=== PATIENT | female | born 1950 | race Caucasian/White ===

== ENCOUNTER 2022-05-18 11:49 | Outpatient (CLI) | payer MEDICARE, OTHER ==
[2022-05-18] MEDS ORDERED: iohexoL-300 100 ML VIAL ONE (11:54)
[2022-05-18] MEDS ORDERED: iohexoL-300 100 ML VIAL IVP ONE (15:32)
--- NOTE | 2022-05-18 17:06 | CT Report ---
PROCEDURE: ANGIO CHEST W/WO INDICATIONS: CHEST PAIN CONTRAST: 100ml Omnipaque 300 TECHNIQUE: Noncontrast images of the chest were obtained. After the administration of intravenous contrast, 2 mm axial images were acquired from the pulmonary apices to the posterior costophrenic angles during the arterial phase. In addition, 1 mm lung kernel and 5 mm soft tissue kernel reconstructions were perfo rmed. 3-dimensional coronal oblique maximum intensity projection (MIP) reformats, 8 mm axial MIP, and 5 mm coronal and sagittal MPR reformats were then performed through the thorax. For radiation dose r eduction, the following was used: automated exposure control, adjustment of mA and/or kV according to patient size. COMPARISON: None. FINDINGS: Image quality: Adequate. Pulmonary arteries: Pulmonary arteries are normal in size, and demonstrate no intraluminal filling d efects to suggest central pulmonary embolism. Lungs and pleura: No consolidation or pleural effusion. Mediastinum: No pericardial effusion. Coronary artery calcifications are present. No mediastinal or hilar adenopathy. Thoracic aorta is normal in caliber and enhancement. Esophagus is normal in calib er. Bones and chest wall: Multilevel degenerative change of the visualized spine. No axillary or supracl avicular adenopathy. Abdomen: Visualized upper abdominal solid organs appear unremarkable in the early arterial phase of enhancement. IMPRESSION: No evidence of aortic dissection or pulmonary embolism. Reviewed by: Uday Dove MD on 05/18/2022 5:04 PM PST Approved by: Uday Dove MD on 05/18/2022 5:04 PM PST Station ID: [id number]
== END 2022-05-18 11:50 | disposition home or self-care (01) ==
LOC: DI 11:49
PROVIDERS: ATTEND Nurse Practitioner Family
DX: R07.9 Chest pain, unspecified (principal)
CPT/HCPCS: 71275; Q9967

== ENCOUNTER 2023-02-23 09:51 | Outpatient (CLI) | payer MEDICARE, OTHER ==
--- NOTE | 2023-03-03 08:47 | Mammography Report ---
BILATERAL DIGITAL SCREENING MAMMOGRAM 3D/2D: 02/23/2023 CLINICAL: Routine screening. No prior exams were available for comparison. Both breasts are almost entirely fatty (category a/<25% glandular tissue). No significant masses, calcifications, or other findings are seen in either breast. IMPRESSION: NEGATIVE There is no mammographic evidence of malignancy. A 1 year screening mammogram is recommended. Based on the Tyrer Cuzick model (a risk assessment model) the patients lifetime risk is 4.7% and her 10 year risk is 2.9%. According to the ACR, ACS, and NCCN guidelines, an annual breast MRI exam cody g with mammogram is recommended if the patients lifetime risk is 20% or greater. This exam was interpreted at Station ID: [id number]. NOTE: For mammograms, a report in lay terms will be sent to the patient. Approximately 15% of breast malignancies will not be visualized mammographically. In the management of a palpable breast mass, a negative mammogram must not discourage biopsy of a clinically suspicious lesion. Electronically Signed By: Gabriella Dutton M.D., PH.D eb/penrad:03/02/2023 23:09:52 letter sent: No_Letter ACR BI-RADS Category 1: Negative 3341F PARENCHYMAL PATTERN: (F) - The breast(s) demonstrate(s) diffuse fatty replacement. BI-RADS CATEGORY: (1) - 1 Mammogram [id number] 1 year screening LATERALITY: (B)
== END 2023-02-23 09:52 | disposition home or self-care (01) ==
LOC: DI.S 09:51
DX: Z12.31 Encounter for screening mammogram for malignant neoplasm of breast (principal)

== ENCOUNTER 2023-04-14 11:47 | Emergency (ER) | payer MEDICARE, OTHER ==
--- NOTE | 2023-04-14 12:15 | ED Physician Documentation ---
History of Present Illness - Stated complaint Stated Complaint: DIZZY,VOMIT,HIGH HR - Chief complaint Chief Complaint: Neuro - History obtained from History obtained from: Patient - History of Present Illness Timing: Today Pain level max: 0 Pain level now: 0 - Additonal information Additional information: 72-year-old female presents to the emergency department with sudden onset of vertigo today. When she opens her eyes and moves her head she feels like the room is spinning. This has made her nauseated and she had vomiting as well. Took Zofran and vomiting improved. No numbness or tingling. No focal neurological deficits. No trauma. Does have a history of a brain aneurysm that was clipped in 2006. No headache. Better with lying still, worse with movement. Worse especially turning her head to the right. Review of Systems Constitutional: denies: Fever, Chills Nose: denies: Rhinorrhea / runny nose, Congestion GI: denies: Diarrhea, Hematemesis Skin: denies: Rash PD PAST MEDICAL HISTORY - Past Medical History Past Medical History: Yes Cardiovascular: High cholesterol Neuro: Other Musculoskeletal: Osteoarthritis - Past Surgical History Past Surgical History: Yes Ortho: Knee replacement, Carpal Tunnel surgery Neuro: Craniotomy - Present Medications Home Medications: Ambulatory Orders Medication Instructions Recorded Confirmed Meclizine HCl [Motion Sickness] 25 - 50 mg PO Q6H PRN #30 tablet 04/14/23 - Allergies Allergies/Adverse Reactions: Allergies Allergy/AdvReac Type Severity Reaction Status Date / Time caffeine [From Cafergot] Allergy Hives Verified 04/14/23 12:02 ergotamine [From Cafergot] Allergy Hives Verified 04/14/23 12:02 Penicillins Allergy Unknown Verified 04/14/23 12:02 phenytoin [From Dilantin] Allergy Unknown Verified 04/14/23 12:02 [id number] Reductase Allergy Cramps Verified 04/14/23 12:02 Inhibitor zolpidem [From Ambien] Allergy Unknown Verified 04/14/23 12:02 - Social History Does the pt smoke?: No Smoking Status: Never smoker Does the pt drink ETOH?: No Does the pt have substance abuse?: No - Immunizations Immunizations are current?: Yes - POLST Patient has POLST: No PD ED PE NORMAL - Vitals Vital signs reviewed: Yes - General General: Alert and oriented X 3, No acute distress - HEENT HEENT: PERRL, Ears normal, Moist mucous membranes, Pharynx benign - Neck Neck: Supple, no meningeal sign, No bony TTP, No JVD, No bruit - Cardiac Cardiac: RRR, Strong equal pulses - Respiratory Respiratory: No respiratory distress, Clear bilaterally - Abdomen Abdomen: Soft, Non tender, Non distended - Derm Derm: Warm and dry - Extremities Extremities: No edema, No calf tenderness / cord - Neuro Neuro: Alert and oriented X 3, reading professor 2-12 intact, No motor deficit, No sensory deficit, Normal speech, Other (Positive Hallpike to the right. Normal [id number], Positive horizontal nystagmus to the right.) Eye Opening: Spontaneous Motor: Obeys Commands Verbal: Oriented GCS Score: 15 - Psych Psych: Normal mood, Normal affect Results - Vitals Vitals: Vital Signs - 24 hr 04/14/23 04/14/23 04/14/23 11:52 12:31 13:53 Temperature 36.7 C 36.6 C Heart Rate 65 63 Respiratory 16 16 17 Rate Blood Pressure 130/67 136/76 H O2 Saturation 99 98 Oxygen O2 Source Room air PD Medical Decision Making - ED course Complexity details: re-evaluated patient, considered differential, d/w patient, d/w family ED course: 72-year-old female with symptoms consistent with benign paroxysmal positional vertigo. She was given IM droperidol and a dose of meclizine. Dizziness resolved. Horizontal nystagmus significantly decreased. No vertical or rotary nystagmus. No focal neurological deficits. No headache. No indication for emergent neuroimaging. We will continue meclizine at home and have her follow- up with her doctor for further care. Patient is well-appearing, nontoxic. Afebrile. No evidence of carotid or vertebral artery dissection. Normal gait. Patient counseled regarding signs and symptoms for which I believe and urgent re-evaluation would be necessary. Patient with good understanding of and agreement to plan and is comfortable going home at this time This document was made in part using voice recognition software. While efforts are made to proofread this document, sound alike and grammatical errors may occur. Departure - Departure Disposition: 01 Home, Self Care Clinical Impression: BPPV (benign paroxysmal positional vertigo) Qualifiers: Laterality: right Qualified Code(s): H81.11 - Benign paroxysmal vertigo, right ear Condition: Good Instructions: ED BPV Vertigo Follow-Up: your,doctor in 1 week if not better [Other] Prescriptions: Meclizine HCl [Motion Sickness] 25 - 50 mg PO Q6H PRN #30 tablet PRN Reason: Dizziness Comments: Your prescriptions were sent to [facility] in [place]. You appear to be suffering from benign paroxysmal positional vertigo. You can try the Keith maneuver or half somersault maneuver at home to help reposition the otolith in your ear. You can find informational videos on these maneuvers on YouTube. Your right ear is affected. Forms: PCP List Discharge Date/Time: 04/14/23 14:03
[2023-04-14] MEDS ORDERED: MECLIZINE 12.5 MG TABLET PO STA (12:21)
[2023-04-14] MEDS ORDERED: DROPERIDOL 5 MG/2 ML VIAL IM STA (12:21)
[2023-04-14 12:39] VITALS: BP 136/76; O2SAT 98
== END 2023-04-14 14:03 | disposition home or self-care (01) ==
LOC: ED 11:47
DX: H81.11 Benign paroxysmal vertigo, right ear (principal)
CPT/HCPCS: 96372; 99283; A9270